=== PATIENT | male | born 2000 | race Two or more races ===

== ENCOUNTER 2025-07-09 18:54 | Emergency (ER) | payer SELFPAY ==
[~2025-07-09] VITALS: Ht 170.2 cm; Wt 63.6 kg
[2025-07-09 19:28] VITALS: TEMP 98.1
[2025-07-09] MEDS: KETOROLAC TROMETHAMINE 30 MG/ML VIAL IVP ONE (19:30)
[2025-07-09 20:57] VITALS: BP 112/73; PULSE 77; RESP 18; O2SAT 98
[2025-07-09] MEDS: MORPHINE SULFATE 4 MG/ML SYRINGE IVP ONE (20:57)
== END 2025-07-09 21:56 | disposition home or self-care (01) ==
LOC: EMS 19:23
DX: S42.332A Displaced oblique fracture of shaft of humerus, left arm, initial encounter for closed fracture (principal); Y04.0XXA Assault by unarmed brawl or fight, initial encounter; X50.1XXA Overexertion from prolonged static or awkward postures, initial encounter; W19.XXXA Unspecified fall, initial encounter; Y93.89 Activity, other specified; Y92.89 Other specified places as the place of occurrence of the external cause; Y99.8 Other external cause status
CPT/HCPCS: 99284; 96374; 29105; 96375; 73030; 73060; 73080; J1885; J2270

== ENCOUNTER 2025-07-16 07:42 | Emergency (ER) | payer MEDICAID ==
[~2025-07-16] VITALS: Ht 167.6 cm; Wt 64.0 kg
[2025-07-16 07:57] VITALS: BP 100/65; PULSE 75; RESP 18; TEMP 98.4; O2SAT 98
[2025-07-16] MEDS: IBUPROFEN 600 MG TABLET PO ONE (10:27)
[2025-07-16] MEDS ORDERED: IBUP-1492 PO (10:42)
[2025-07-16] MEDS ORDERED: PERCT PO (10:42)
== END 2025-07-16 10:54 | disposition home or self-care (01) ==
LOC: EMS 07:55
DX: S42.302A Unspecified fracture of shaft of humerus, left arm, initial encounter for closed fracture (principal); Y08.89XA Assault by other specified means, initial encounter; Y93.89 Activity, other specified; Y92.89 Other specified places as the place of occurrence of the external cause; Y99.9 Unspecified external cause status
CPT/HCPCS: 29105; 99283